=== PATIENT | male | born 1995 | race Two or more races ===

== ENCOUNTER 2019-03-13 09:55 | Emergency (ER) | payer MEDICAID ==
[~2019-03-13] VITALS: Ht 180.3 cm; Wt 77.1 kg
--- NOTE | 2019-03-13 10:10 | NUR ---
Patient complaining of right hand pain s/p punching a wall. Patient a/ox4, breathing even and unlabored, kept comfortable. Will monitor.
[2019-03-13] MEDS ORDERED: HYDROCODONE/APAP 5/325MG 1 EACH TABLET ONE (10:12)
[2019-03-13] MEDS ORDERED: HYDROCODONE/APAP 5/325MG 1 EACH TABLET PO ONE (10:30)
[2019-03-13 10:55] VITALS: BP 155/97
--- NOTE | 2019-03-13 10:55 | NUR ---
Patient discharged to home in stable condition. Written and verbal after care instructions given. Patient verbalizes understanding of instruction.
== END 2019-03-13 10:56 | disposition home or self-care (01) ==
LOC: ER 09:59
DX: S60.211A Contusion of right wrist, initial encounter (principal); W22.8XXA Striking against or struck by other objects, initial encounter; Y93.89 Activity, other specified; Y92.89 Other specified places as the place of occurrence of the external cause; Y99.8 Other external cause status
CPT/HCPCS: 73110